=== PATIENT | male | born 1995 | race Caucasian/White ===

== ENCOUNTER 2024-06-28 12:25 | Emergency (ER) | payer SELFPAY ==
[2024-06-28 12:38] VITALS: BP 146/94
[2024-06-28 12:56] LABS: % Eosinophils 2.7 % (0-6); % Immature Granulocytes 0.4 % (0-0.5); % Lymphocytes 38.3 % (20.5-51.1); % Monocytes 4.8 % (1.7-9.3); % Neutrophils 52.8 % (42.2-75.2); Absolute Basophils 0.1 10^3/uL (0-0.2); Absolute Eosinophils 0.2 10^3/uL (0-0.7); Absolute Lymphocytes 2.8 10^3/uL (1.2-3.4); Absolute Monocytes 0.4 10^3/uL (0.1-0.6); Absolute Neutrophils 3.9 10^3/uL (1.4-6.5); Hematocrit 46.1 % (39.0-52.0); Mean Corp Hgb Conc. 34.7 g/dL (33.0-37.0); Mean Corpuscular Volume 86.5 fL (80.0-94.0); Mean Platelet Volume 8.5 fL (7.4-10.4); Nucleated Red Blood Cells % 0 % (-); Platelet Count 364 10^3/uL (130-400); Red Blood Cell Count 5.33 10^6/uL (4.70-6.10); Red Cell Dist. Width 11.9 % (11.5-14.5); White Blood Cell Count 7.3 10^3/uL (4.8-10.8)
[2024-06-28 13:22] LABS: ALT (SGPT) 34 U/L (0-50); AST (SGOT) 30 U/L (17-59); Albumin 5.8 g/dl (3.5-5.0); Alkaline Phosphatase 66 U/L (38-126); Blood Urea Nitrogen 18 mg/dl (9-20); Calcium 10.4 mg/dl (8.4-10.2); Carbon Dioxide 28 mmol/L (22-30); Chloride 99 mmol/L (98-107); Glucose 114 mg/dl (70-99); Potassium 4.5 mmol/L (3.5-5.1); Sodium 139 mmol/L (135-145); Total Bilirubin 0.8 mg/dl (0.2-1.3); Total Protein 8.5 g/dl (6.3-8.2); eGFR > 60.00
[2024-06-28 13:46] LABS: Urine Albumin 1+ (Neg - Trace); Urine Bilirubin Negative (Negative); Urine Character Clear (Clear); Urine Color Yellow; Urine Glucose Negative (Negative); Urine Ketone Negative (Negative); Urine Leukocyte Negative (Negative); Urine Nitrite Negative (Negative); Urine Occult Blood Negative (Negative); Urine Specific Gravity 1.025 (<1.030); Urine Urobilinogen Negative (Neg - 1+)
[2024-06-28 13:54] LABS: Urine Mucus Few
[2024-06-28 13:55] LABS: Urine Bacteria Few (Negative); Urine Red Blood Cell 0-2 /HPF (0-2); Urine White Cell 0-2 /HPF (0-5)
--- NOTE | 2024-06-28 16:12 | ED.GENMED ---
History of Present Illness
General
Chief Complaint: Abdominal Pain
Time Seen by Provider: 06/28/24 15:46
History of Present Illness
History of Present Illness:
Patient presents to the emergency department right lower quadrant pain. Symptoms have been worsening over the past 2 days. Reports nausea and vomiting. Reports diarrhea. Reports chills denies any scrotal swelling or pain.
Past History
Past History
ED Past Medical History: Psychiatric
ED Past Surgical History: None
Social History
Tobacco: Non-smoker
Alcohol: None
Drug: Marijuana
Personal: Single
Living: with family
Family History
Family History: Other (Noncontributory)
Phy Exam
Physical Exam
Physical Exam:
GENERAL APPEARANCE: NAD, well developed/ well nourished
EYES lids/conjunctiva normal
EARS/NOSE/THROAT Mucous membranes moist, uvula midline without oral pharyngeal erythema, exudate or swelling
HEAD/NECK normocephalic atraumatic, neck is supple.
RESPIRATORY respiratory effort normal, speaks in full sentences, no accessory muscle use. Lungs clear to auscultation without rhonchi, wheezes, rales
CARDIAC Regular rate and rhythm, no edema.
ABDOMINAL mildly distended. There is tenderness in the right lower quadrant. Abdomen is soft
MUSCLES/EXTREMITIES No abnormal range of motion, no swelling.
SKIN Warm, pink and dry. No rashes
NEUROLOGICAL Speech is clear and appropriate. Normal level of consciousness. 5/5 strength in all extremities.
PSYCH Normal mood and affect. Judgement/competence is appropriate
Course
Orders/Labs/Results
Orders:
Orders
06/28/24 12:42
Complete Blood Count/With Diff Urgent
Comprehensive Metabolic Panel Urgent
Fentanyl, Urine Urgent
Urinalysis Reflex To Culture Urgent
Date Specimen was Collected: 06/28/24
Time Specimen was Collected: 12:41
Urine Drug Abuse Screen Urgent
Date Specimen was Collected: 06/28/24
Time Specimen was Collected: 12:41
Urine Microscopic Reflex Cult Urgent
06/28/24 16:05
CT Abd/pelvis W Iv Cont Urgent
Comment:
Reason For Exam: RLQ pain , rule out appendicitis
06/28/24 16:06
Ketorolac [Toradol] 15 mg IV NOW STA
Ondansetron Injectable [Zofran] 4 mg IV NOW STA
06/28/24 17:24
Morphine Sulfate 4 mg IV NOW STA
06/28/24 19:31
Morphine Sulfate 4 mg IV NOW STA
06/28/24 21:55
Ondansetron Injectable [Zofran] 4 mg .ROUTE .STK-MED ONE
06/28/24 21:56
Ondansetron Injectable [Zofran] 4 mg IV NOW STA
06/28/24 22:48
Morphine Sulfate 4 mg IV NOW STA
Ondansetron Injectable [Zofran] 4 mg IV NOW STA
06/28/24 22:50
Add On- LAB Urgent
Tests Added?: urine drug screen
06/28/24 23:00
Flush (0.9% Sodium Chloride) [Flush (Nss)] See Dose Instructions IV PER PROTOCOL
06/28/24 23:22
Code Status As Directed
Resuscitation Status: Full Code
PRN Pain Medication Management As Directed
May give lesser potent ordered pain med per pt: Yes
preference::
Protocol:: Medication orders for pain may be administered in a
manner that supports deferring to patient preference
when the pt is:
- Requesting an ordered lesser potent pain medication.
Least to most potent pain medications are defined
as: acetaminophen < NSAID < tramadol < opioids
(morphine, oxycodone, hydromorphone).
- Requesting a lesser dose of the same medication IF
ORDERED.
- Requesting a less intrusive route of administration
if both routes are prescribed by the provider (PO <
IV).
Abnormal Lab Results
06/28/24
12:42
Glucose 114 H mg/dl
(70-99)
Calcium 10.4 H mg/dl
(8.4-10.2)
Total Protein 8.5 H g/dl
(6.3-8.2)
Albumin 5.8 H g/dl
(3.5-5.0)
Urine Bacteria (Reflex) Few A
(Negative)
Urine Albumin (Reflex) 1+ A
(Neg - Trace)
U Benzodiazepines Scrn Positive H
(Negative)
U Marijuana (THC) Screen Positive H
(Negative)
06/28/24 12:42
06/28/24 12:42
Vital Signs
Initial and Last Documented VS:
Initial Vital Signs
Temp Pulse Resp BP Pulse Ox
98.3 F 80 18 146/94 100
06/28/24 12:38 06/28/24 12:38 06/28/24 12:38 06/28/24 12:38 06/28/24 12:38
Last Documented Vital Signs
Temp Pulse Resp BP Pulse Ox
98.3 F 63 20 145/85 94
06/28/24 12:38 06/29/24 00:42 06/29/24 00:42 06/29/24 00:42 06/29/24 00:42
*Critical Care Note
Total Time (30-74mins, 75-104mins- exclusive of procedures): Not Applicable
ED Attending Note
ED Attending Note
ED Attending Note:
Patient with right lower quadrant pain and tenderness. Well-appearing though significantly tender on exam. Will obtain labs and CT scan to rule out appendicitis or intra-abdominal emergencies.
-
Portions of this chart may have been created with voice recognition software.� Occasional wrong word or��sound alike� substitutions may have occurred due to the inherent limitations of voice recognition software.
Discharge Plan
Departure
Patient Disposition: Home (Routine Discharge)
Date of Disposition: 06/28/24
Time of Disposition: 22:48
Patient with high blood pressure during this ER visit?: Yes
Condition: Good
Discharge Problem:
Abdominal pain, Vomiting
Prescriptions:
No Action
propranolol 10 mg Tablet
10 mg PO DAILY
diazepam 10 mg Tablet
20 mg PO DAILY
Valerian Root Tea
1 dose PO DAILY
Referrals:
Mustapha Austin DO [Family Provider] -
Interventions
Interventions:
*Risk Screen - Suicide Last Done: 06/28/24 12:38
*General Assessment Last Done: 06/28/24 12:40
*Neglect/Abuse Screening Last Done: 06/28/24 12:38
*Nursing Disposition Last Done: 06/29/24 00:45
CV-[id number]-[id number] Assessment Last Done: 06/28/24 16:26
Discharge Date and Time
Discharge Date/Time: 06/29/24 00:46
Print Language: KAZAKH
[2024-06-28] MEDS: TORADOL 15 MG IV (16:31)
[2024-06-28] MEDS: ZOFRAN 4 MG IV ×2 (16:32→21:57)
[2024-06-28 16:35] VITALS: BMI 24.8
[2024-06-28] MEDS: MORPHINE SULFATE 4 MG IV ×2 (17:46→19:36)
[2024-06-28 18:49] VITALS: BP 125/59
[2024-06-28 22:00] VITALS: BP 130/79
[2024-06-28 23:08] LABS: Amphetamines Negative (Negative); Barbiturates Negative (Negative); Benzodiazepines Positive (Negative); Buprenorphine Negative (Negative); Cocaine Negative (Negative); Marijuana Positive (Negative); Methadone Negative (Negative); Methamphetamines Negative (Negative); Opiates Negative (Negative); Phencyclidine Negative (Negative); Tricyclic Antidepressants Negative (Negative)
--- NOTE | 2024-06-28 23:09 | HPS.HSE ---
Addendum entered and electronically signed by Josh Nettles DO 06/29/24 00:19:
Patient seen and examined independently. Agree with findings and plan as set forth by JULIA Conley.
Patient is a 29y M with PMH significant for anxiety, depression, PTSD who presents to ED complaining of RLQ abdominal pain. He reports no BM in the past 2 days. Complains of constipation alternating with diarrhea at times. He has had the RLQ
and intermittent N/V for the past 2 days. Evaluation in the ED was largely unremarkable including CT scan which showed normal appendix and air / distention of the rectum without inflammation / proctitis.
After examination and discussion with patient, he elected to be discharged from the ED for further followup with PCP +/- GI as an outpatient.
Case reviewed with ED physician and patient discharged from the ED prior to admission.
Original Note:
Family Physician
-
Family Physician: Mustapha Austin
Chief Complaint
-
right lower quadrant pain
History of Present Illness
29 year old with PMH for depression presented to us with right lower quadrant pain for two days. stated nausea and vomiting. denied any blood in the vomit. he has not had a bowel movement for past two days. patient stated constipation. he is also
having poor appetite. denied fever, chills, chest pain, sob. denied DAMON, dizzy or syncope. denied dysuria or hematuria.
Ct with no acute findings. admitting for further management.
Medical History
Past Medical History
Past Medical History: Reports Other
Additional Past Medical History:
depression
Past Surgical History: Reports None
Social History
Tobacco: Non-smoker
Alcohol: None
Drug: None
Family History
Family History: Not pertinent
Allergies / Home Medications
Allergies reflects when Allergies were last updated in [facility].
Home Medications with original date entered in [facility]
Allergy/Medication List:
Allergies
Allergy/AdvReac Type Severity Reaction Status Date / Time
No Known Allergies Allergy Verified 06/28/24 12:38
Home Medications
fluoxetine 10 mg capsule (Prozac) 10 mg PO DAILY 08/11/13
Review of Systems
-
Constitutional: Reports No Symptoms
EENT: Reports No Symptoms
Respiratory: Reports No Symptoms
Cardiac: Reports No Symptoms
Abdomen/GI: Reports Abdominal Pain, Nausea and Vomiting
: Reports No Symptoms
Musculoskeletal: Reports No Symptoms
Skin: Reports No Symptoms
Neurological: Reports No Symptoms
Endocrine: Reports No Symptoms
Hematologic/Lymphatic: Reports No Symptoms
Psych: Reports No Symptoms
Physical Exam
Vital Signs
Vital Signs
Temp Pulse Resp BP Pulse Ox
98.3 F 82 16 130/79 100
06/28/24 12:38 06/28/24 22:00 06/28/24 22:00 06/28/24 22:00 06/28/24 12:38
Physical Exam
General: Well Developed, Well Nourished and No Apparent Distress
HEENT: NormoCephalic, Moist mucous membranes and Atraumatic
Respiratory: Clear
Cardiac: S1/S2 and Regular Rhythm; No Murmur or Rub
GI: Soft, Normal Bowel Sounds, Tender and Other (right lower quadrant); No Organomegaly
Rectal: Deferred by Provider
Musculoskeletal: No Clubbing, No Cyanosis and No Edema
Skin: No Rash
Neuro: AO x 3 and Nonfocal/grossly intact
Psych: Calm
Laboratory Results
-
06/28/24 12:42
06/28/24 12:42
Laboratory Results
Total Bilirubin 0.8 mg/dl (0.2-1.3) 06/28/24 12:42
AST 30 U/L (17-59) 06/28/24 12:42
ALT 34 U/L (0-50) 06/28/24 12:42
Alkaline Phosphatase 66 U/L (38-126) 06/28/24 12:42
Data Reviewed
-
CT Scan: Report Reviewed by me
Lab Data: Labs Reviewed by me
Impression/Plan
-
#intractable abdominal pain associated with vomiting unclear cause
-clear liquid diet advance as tolerated
-Zofran prn for n/v
-Toradol prn for pain
-Ct with the impression of the appendix is well-visualized and appears normal. No evidence for bowel obstruction and no evidence for free intraperitoneal air.Moderate distention of the rectum, predominantly with air. Rectum has transverse dimension
of 8.7 cm. No evidence for rectal wall thickening or stranding in the perirectal fat, with no findings that would suggest focal proctitis.Calcification of the left adrenal gland, but maintaining its adreniform shape. This is most likely from
previous granulomatous disease. Normal appearance of the right adrenal gland.Minimal superior endplate depression of the T10 vertebral body, and appears to be old.
#Depression
-diazepam,propranolol continued
#DVT prophylaxis
-Lovenox
#CODE status
-full code
[2024-06-28 23:28] LABS: Fentanyl, Urine Negative (Negative)
[2024-06-29] MEDS: MORPHINE SULFATE 4 MG IV (00:23)
[2024-06-29 00:42] VITALS: BP 145/85
== END 2024-06-29 00:46 | disposition home or self-care (01) ==
LOC: EMR 12:25
PROVIDERS: Emergency Medicine; EMERGENCY PHYSICIAN Emergency Medicine; FAMILY PHYSICIAN Family Medicine
DX: R10.31 Right lower quadrant pain (principal); F32.A Depression, unspecified; R11.2 Nausea with vomiting, unspecified
CPT/HCPCS: 96374; 96375; 96376; 99284; 74177; 80053; 80306; 80307; 81003; 81015; 85025; Q9967

== ENCOUNTER 2024-07-31 06:22 | Day surgery (SDC) | payer MEDICAID, SELFPAY | END 2024-07-31 15:39 | disposition home or self-care (01) | LOC: GI 06:22 | PROVIDERS: ATTENDING PHYSICIAN Internal Medicine Gastroenterology | DX: K62.5 Hemorrhage of anus and rectum (principal); R19.4 Change in bowel habit; K64.0 First degree hemorrhoids; R11.2 Nausea with vomiting, unspecified; K21.00 Gastro-esophageal reflux disease with esophagitis, without bleeding; K22.89 Other specified disease of esophagus; K63.5 Polyp of colon; K22.10 Ulcer of esophagus without bleeding | CPT/HCPCS: 45380; 43239; 88305; 88312; 88342 ==